=== PATIENT | female | born 1990 | race Caucasian/White ===

== ENCOUNTER 2016-11-15 10:41 | Emergency (ER) | payer BC, OTHER ==
[2016-11-15 11:03] VITALS: BP 142/93
--- NOTE | 2016-11-15 11:44 | UC ---
Shon Leal Adam, [facility] on 11/15/16 at 1122 . Upper Extremity HPI - HPI Summary HPI Summary: Nurse's Note: c/o a hard lump and bruising to her R arm, lower bicep area since yesterday. pt states she noticed the lump last night and then today, she noticed the bruising around the lump and now has pain. Denies any recent injury or trauma to the R arm In Room: Pt states that the lump appeared on the lower part of her right biceps last night. Today she developed bruising and pain around the lump. Movement of the arm does not aggravate the pain. She also reports intermittent tingling in her right hand. She denies any trauma. 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 She denies any recent URI. Besides a collarbone fracture in the past , she denies any PMHx. FMHx of palpitations. Pt does not currently have a PCP. - History of Current Complaint Chief Complaint: UCUpperExtremity Stated Complaint: LUMP ON ARM Time Seen by Provider: 11/15/16 11:17 Hx Obtained From: Patient Hx Last Menstrual Period: pt has an IUD and states not having a menses Onset/Duration: Gradual Onset, Lasting Days, Still Present Severity Initially: Moderate Severity Currently: Moderate Location Of Pain: Is Discrete @ - Right arm Aggravating Factor(s): Nothing Alleviating Factor(s): Nothing Associated Signs And Symptoms: Positive: Swelling - Lump, Bruising - Allergies/Home Medications Allergies/Adverse Reactions: Allergies Allergy/AdvReac Type Severity Reaction Status Date / Time Penicillins Allergy Intermediate Hives Verified 11/15/16 11:03 Amoxicillin [From Augmentin] AdvReac Intermediate GI Upset Verified 11/15/16 11: 04 Clavulanic Acid AdvReac Intermediate GI Upset Verified 11/15/16 11:04 [From Augmentin] Home Medications: Home Medications Sertraline HCl [Zoloft] 150 mg PO DAILY 11/15/16 [History Confirmed 11/15/16] PMH/Surg Hx/FS Hx/Imm Hx - Surgical History Surgical History: Yes Surgery Procedure, Year, and Place: tonsilectomy, back surgery - Family History Known Family History: Positive: Other - Palpitations - Social History Occupation: Employed Full-time Lives: Alone Alcohol Use: Rare Substance Use Type: None Smoking Status (MU): Never Smoked Tobacco Review of Systems Skin: Bruising - Right arm, Other - Lump on right arm Musculoskeletal: Myalgia - Right arm All Other Systems Reviewed And Are Negative: Yes Physical Exam Triage Information Reviewed: Yes Appearance: Well-Appearing, No Pain Distress, Well-Nourished Vital Signs: Initial Vital Signs Temp 98.2 F 11/15/16 10:56 Pulse 82 11/15/16 10:56 Resp 16 11/15/16 10:56 BP 142/93 11/15/16 10:56 Pulse Ox 100 11/15/16 10:56 Eyes: Positive: Conjunctiva Clear ENT: Positive: Hearing grossly normal, Pharynx normal, TMs normal. Negative: Muffled/hoarse voice Neck: Positive: Supple, No Lymphadenopathy Respiratory: Positive: Chest non-tender, Lungs clear, Normal breath sounds, No respiratory distress Cardiovascular: Positive: RRR, No Murmur Abdomen Description: Positive: Nontender, No Organomegaly, Soft Bowel Sounds: Positive: Present Musculoskeletal: Positive: Strength Intact, ROM Intact Neurological: Positive: Alert Psychological: Positive: Age Appropriate Behavior Skin: Positive: Other - 2.5 cm mildly ecchymotic area over the distal biceps muscle, approximately 5 cm above the elbow crease. No other areas of ecchymosis or lymphadenopathy. Upper Extremity Course/Dx - Course Course Of Treatment: I discussed with the patient the mechanism of injury as well as my expectation that this will resolve. I also advised her not to overuse this muscle over the next few days. - Differential Dx/Diagnosis Differential Diagnosis/HQI/PQRI: Other - Muscle injury vs tendon injury Provider Diagnoses: Localized injury to the right biceps muscle with ecchymosis. Discharge - Discharge Plan Condition: Stable Disposition: HOME Patient Education Materials: Ecchymosis (ED) Additional Instructions: WE DISCUSSED: 1. YOUR BLACK AND BLUE FLO IS FROM A MINOR INJURY TO YOUR BICEPS MUSCLE. 2. THIS SHOULD FADE OVER THE NEXT WEEK AND SHOULD NOT GET A LOT BIGGER, MORE PAINFUL OR PRODUCE ANY NEW DISABILITY. RE CHECK AT ANY TIME FOR THESE EVENTS. 3. RE CHECK FOR OTHER BLACK AND BLUE SPOTS. 4. WARM MOIST HEAT IN THE MORNING. RESTRICT LIFTING UNTIL THIS RESOLVES. 5. CALL US WITH ANY QUESTIONS OR CONCERNS. The documentation as recorded by the naomiibShon sharma Adam accurately reflects the service I personally performed and the decisions made by me, Gabo Bravo MD.
== END 2016-11-15 12:07 | disposition home or self-care (01) ==
LOC: UCEAST 10:41
DX: S49.91XA Unspecified injury of right shoulder and upper arm, initial encounter (principal); X58.XXXA Exposure to other specified factors, initial encounter; Y93.9 Activity, unspecified; Y92.9 Unspecified place or not applicable; R23.3 Spontaneous ecchymoses; Z88.1 Allergy status to other antibiotic agents; Z88.0 Allergy status to penicillin
CPT/HCPCS: 99211; G0463

== ENCOUNTER 2017-03-03 14:42 | Emergency (ER) | payer OTHER ==
[2017-03-03 14:55] VITALS: BP 142/70
[2017-03-03] MEDS ORDERED: Albuterol/Ipratropium NEB.SOL* Albuterol 2.5 MG/Ipratropium 0.5 MG 3 ML INH ONE (15:05)
--- NOTE | 2017-03-03 15:49 | UC ---
Throat Pain/Nasal Bret HPI - HPI Summary HPI Summary: ONE WEEK OF SINUS CONGESTION FACIAL PRESSURE , FEVER 102F AND OCCASIONAL COUGH WITH WHEEZING WORSE IN MORNING. NON SMOKER. NO HX OF ASTHMA. NO SORETHROAT. - History of Current Complaint Chief Complaint: UCRespiratory Stated Complaint: SINUS PRESSURE,CHEST CONGESTION Time Seen by Provider: 03/03/17 14:59 Hx Obtained From: Patient Hx Last Menstrual Period: 2 months ago Onset/Duration: Gradual Onset, Lasting Weeks, Still Present Severity: Moderate Cough: Nonproductive Associated Signs & Symptoms: Positive: Hoarseness, Sinus Discomfort, Nasal Discharge, Fever - Epiglottits Risk Factors Epiglottis Risk Factors: Negative - Allergies/Home Medications Allergies/Adverse Reactions: Allergies Allergy/AdvReac Type Severity Reaction Status Date / Time Penicillins Allergy Intermediate Hives Verified 03/03/17 14:57 Amoxicillin [From Augmentin] AdvReac Intermediate GI Upset Verified 03/03/17 14: 57 Clavulanic Acid AdvReac Intermediate GI Upset Verified 03/03/17 14:57 [From Augmentin] Home Medications: Home Medications buPROPion TAB* [Wellbutrin TAB*] 03/03/17 [History] PMH/Surg Hx/FS Hx/Imm Hx Previously Healthy: Yes - Surgical History Surgical History: Yes Surgery Procedure, Year, and Place: tonsilectomy, back surgery - Family History Known Family History: Positive: Other - Palpitations - Social History Occupation: Employed Full-time Lives: With Family Alcohol Use: Rare Substance Use Type: None Smoking Status (MU): Never Smoked Tobacco Review of Systems Constitutional: Fever, Chills Skin: Negative Eyes: Negative ENT: Nasal Discharge Respiratory: Cough Cardiovascular: Negative Gastrointestinal: Negative Genitourinary: Negative Motor: Negative Neurovascular: Negative Musculoskeletal: Negative Neurological: Negative Psychological: Negative All Other Systems Reviewed And Are Negative: Yes Physical Exam Triage Information Reviewed: Yes Appearance: No Pain Distress, Well-Nourished, Ill-Appearing - MILD Vital Signs: Initial Vital Signs Temp 98.2 F 03/03/17 14:53 Pulse 86 03/03/17 14:53 Resp 18 03/03/17 14:53 BP 142/70 03/03/17 14:53 Pulse Ox 100 03/03/17 14:53 Vital Signs Reviewed: Yes Eye Exam: Normal ENT: Positive: Hearing grossly normal, Pharynx normal, Nasal congestion, TM bulging, TM dull Dental Exam: Normal Neck exam: Normal Neck: Positive: Supple, Nontender, No Lymphadenopathy Respiratory: Positive: Chest non-tender, Normal breath sounds, No respiratory distress, No accessory muscle use, Wheezing Cardiovascular Exam: Normal Cardiovascular: Positive: RRR, No Murmur, Pulses Normal, Brisk Capillary Refill Abdominal Exam: Normal Abdomen Description: Positive: Nontender, No Organomegaly Musculoskeletal Exam: Normal Musculoskeletal: Positive: Strength Intact, ROM Intact Neurological Exam: Normal Psychological Exam: Normal Skin Exam: Normal Throat Pain/Nasal Course/Dx - Differential Dx/Diagnosis Differential Diagnosis/HQI/PQRI: Pharyngitis, Sinusitis, URI Provider Diagnoses: SINUSITIS. BRONCHITIS WITH BRONCHOSPASM Discharge - Discharge Plan Condition: Stable Disposition: HOME Prescriptions: Albuterol HFA INHALER* [Ventolin HFA Inhaler*] 1 - 2 puff INH Q6H PRN #1 mdi PRN Reason: Wheezing DOXYcycline CAP(*) [DOXYcycline 100MG CAP(*)] 100 mg PO BID #20 cap Patient Education Materials: Sinusitis (ED), Acute Bronchitis (ED), Bronchospasm (ED) Referrals: [facility] [place] [facility] [Outside] No Primary Care Phys,NOPCP [Primary Care Provider] -
== END 2017-03-03 15:55 | disposition home or self-care (01) ==
LOC: UCEAST 14:42
DX: J32.9 Chronic sinusitis, unspecified (principal); J20.9 Acute bronchitis, unspecified; Z88.1 Allergy status to other antibiotic agents; Z88.0 Allergy status to penicillin
CPT/HCPCS: 99212; A9270-GY; G0463

== ENCOUNTER 2018-09-19 07:06 | Emergency (ER) | payer OTHER ==
[2018-09-19 07:27] VITALS: BP 134/80
--- NOTE | 2018-09-19 07:31 | UC ---
Lower Extremity/Ankle HPI - HPI Summary HPI Summary: Patient presents to urgent care reporting discomfort and pain in the base of her first and second toe. Patient states she was playing soccer inside with her toddler when she kicked a leg on her dining room table. Patient states the leg went between her first and second toe. Patient states she had mild pain initially. Patient states she increased pain is it swelled throughout the night. Patient took 600 mg of Motrin. Patient states she had throbbing pain and this seemed to help. Patient continues to complain of pain in the same spot. Patient states she's bucking limp. Patient's paresthesias. Patient states she's walking she's developed some discomfort in her right ankle. Patient without any paresthesias. Slight bruising. Patient's medications reviewed this plan visit. Patient states she is not . - History of Current Complaint Chief Complaint: UCLowerExtremity Stated Complaint: RIGHT FOOT INJURY Hx Obtained From: Patient Hx Last Menstrual Period: 08/18/18 Onset/Duration: Sudden Onset Severity Initially: Mild Severity Currently: Mild Pain Intensity: 3 Pain Scale Used: 0-10 Numeric - Allergies/Home Medications Allergies/Adverse Reactions: Allergies Allergy/AdvReac Type Severity Reaction Status Date / Time amoxicillin [From Augmentin] Allergy GI Upset Verified 09/19/18 07:20 clavulanic acid Allergy GI Upset Verified 09/19/18 07:20 [From Augmentin] Penicillins Allergy Hives Verified 09/19/18 07:20 Home Medications: Home Medications Ibuprofen TAB* [Advil TAB*] 600 mg PO ONCE 09/19/18 [History Confirmed 09/19/18] Multivitamin [Multivitamins] 1 cap PO DAILY 09/19/18 [History Confirmed 09/19/18 ] PMH/Surg Hx/FS Hx/Imm Hx Previously Healthy: Yes - Surgical History Surgical History: Yes Surgery Procedure, Year, and Place: tonsilectomy, back surgery - Family History Known Family History: Positive: Other - Palpitations - Social History Lives: With Family Alcohol Use: Rare Substance Use Type: None Smoking Status (MU): Never Smoked Tobacco Review of Systems All Other Systems Reviewed And Are Negative: Yes Skin: Positive: Bruising - mild base great toe Musculoskeletal: Positive: Other: - toe right foot Physical Exam - Summary Physical Exam Summary: Vital Signs Reviewed: Yes A+Ox3, no distress Eyes: Conjunctiva Clear ENT: Hearing grossly normal neck: supple Respiratory: Positive: No respiratory distress, No accessory muscle use Cardiovascular: skin color reflect adequate perfusion 2+ DP, PT CBT < 2 sec Musculoskeletal Exam: FOREMAN x 4 without difficulty + SLE + flex.ext knee + flex/ ext ankle + TTP right foot base 1st and 2nd toe no crepitus mild edema no pain metatarsals, tarsals. mild discomfort posterior lateral malleolus Neurological: Positive: Alert, ambulatory with limp Skin: Positive: no rash, mild ecchymosis Psychological: approrpriate, A+O Triage Information Reviewed: Yes Vital Signs: Initial Vital Signs Temp 98.8 F 09/19/18 07:21 Pulse 84 09/19/18 07:21 Resp 18 09/19/18 07:21 BP 134/80 09/19/18 07:21 Pulse Ox 98 09/19/18 07:21 Diagnostics - Radiology No standard instances Radiology Interpretation Completed By: ED Physician - no acute fracture Lower Extremity Course/Dx - Course Course Of Treatment: Patient presents to urgent care with pain in her right great and second toe. Patient states she struck a table last night while playing indoor soccer with her child. Patient with throbbing pain last night. Mild ecchymosis. Patient took Motrin last night no analgesia today. Patient declines analgesia today. Patient agreement ice. Will check imaging. encourage ice/elevate. motrin/apap. hard soled shoe - Differential Dx/Diagnosis Provider Diagnosis: Contusion of right foot Discharge - Sign-Out/Discharge Documenting (check all that apply): Patient Departure All imaging exams completed and their final reports reviewed: Yes - Discharge Plan Condition: Stable Disposition: HOME Patient Education Materials: Foot Contusion (ED) Forms: *Gen. Provider Communication, *Work Release Referrals: [facility] [Provider Group] No Primary Care Phys,NOPCP [Primary Care Provider] - Additional Instructions: -apply ice (20 min at a time) every 2-3 hours for the next 2 days -use crutches until you can walk normally without a limp -Elevate your leg - this will help with swelling and pain - wear shoes with firm sole - good support - Alternate ibuprofen (advil, Motrin) 600mg and tylenol every 3 hours for pain. Take with food. Do NOT take for more than 4-5 days - The radiologist has not yet read your xray- your doctor will follow-up on the report. If there is a broken bone or other finding, you will receive a call from a care merchandise team manager -Contact the sports medicine provider today to arrange a follow-up appointment later this week. - Billing Disposition and Condition Condition: STABLE Disposition: Home
--- NOTE | 2018-09-19 08:49 | UC ---
- Progress Note Progress Note: Patient Name: LAXMI PARKS Medical Record#: [id number] Ordering Physician: Oly Ralph MD Acct.#: [id number] : 1990 Age: 28 Sex: F Location: [facility] Exam Date: 09/19/18738 ADM Status: REG ER Order Information: FOOT RIGHT 3+ VWS Accession Number: [id number] CPT: 90029 Indication: Pain at the base of the first and second toes following injury. Comparison: No relevant prior exams available on the [facility] PACS for comparison. Technique: AP, lateral, and oblique views RIGHT foot. Report: Negative for fracture or malalignment. Unremarkable soft tissue contours. IMPRESSION: #. Negative exam. <Electronically signed by Mihir Baker MD in OV> 09/19/18842 Dictated By: Mihir Baker MD Dictated Date/Time: 09/19/18842 Transcribed Date/Time: 09/19/18833 Copy to: CC:Oly Ralph MD; No Primary Care Phys,NOPCP Imaging - [facility] [address] [place] [address] ph ([phone] ph ([phone]) ph ([phone]) This report is only to be considered final once signed by the Provider(s) as displayed in the "<Electronically Signed by >" field (s). Absence of a signature indicates the report is in a draft status and still needs to be finalized. In the event this document was created by someone other than the signing Provider, the individual initiating the document will be listed in the "Entered by:" or "Dictated by:" dubois. 1 of 1 Course/Dx - Diagnoses Provider Diagnoses: Contusion of right foot Discharge - Sign-Out/Discharge Documenting (check all that apply): Post-Discharge Follow Up All imaging exams completed and their final reports reviewed: Yes - Discharge Plan Condition: Stable Disposition: HOME Patient Education Materials: Crutch Instructions (ED), Foot Contusion (ED) Forms: *Gen. Provider Communication, *Work Release Referrals: [facility] [Provider Group] No Primary Care Phys,NOPCP [Primary Care Provider] - Additional Instructions: -apply ice (20 min at a time) every 2-3 hours for the next 2 days -use crutches until you can walk normally without a limp -Elevate your leg - this will help with swelling and pain - wear shoes with firm sole - good support - Alternate ibuprofen (advil, Motrin) 600mg and tylenol every 3 hours for pain. Take with food. Do NOT take for more than 4-5 days - The radiologist has not yet read your xray- your doctor will follow-up on the report. If there is a broken bone or other finding, you will receive a call from a care boilermaker central steam plant -Contact the sports medicine provider today to arrange a follow-up appointment later this week. - Billing Disposition and Condition Condition: STABLE Disposition: Home
== END 2018-09-19 08:57 | disposition home or self-care (01) ==
LOC: UCCORT 07:06
DX: S90.31XA Contusion of right foot, initial encounter (principal); W22.09XA Striking against other stationary object, initial encounter; Y93.89 Activity, other specified; Y92.009 Unspecified place in unspecified non-institutional (private) residence as the place of occurrence of the external cause; Z88.0 Allergy status to penicillin; Z88.8 Allergy status to other drugs, medicaments and biological substances
CPT/HCPCS: 99213; G0463

== ENCOUNTER 2019-08-06 08:37 | Emergency (ER) | payer OTHER ==
--- NOTE | 2019-08-06 08:49 | UC ---
UC General HPI - HPI Summary HPI Summary: noticed some neck and shoulder stiffness on night, worsened and became more painful monday night. Does not recall precise injury perse, but during the day on was cleaning / shoveling chicken coop. But did not have pain at the time. Tendernes has progressively increased since night. Unable to get comfortable, last night really bad. Pain radiates to L post shoulder and L upper back. [facility] - approx 4yrs ago - + herniated lumbar disc (not sure of level maybe #5?), with distal LLE weakness / numbness -> s/p discectomoty, better. Works as an aviation electrician. No recent fever / chills. No sob / cp No GI issues. No rash. - History of Current Complaint Chief Complaint: UCBackPain Stated Complaint: NECK/ SHOULDER PAIN Hx Obtained From: Patient Hx Last Menstrual Period: july 10 Pain Intensity: 3 - Allergy/Home Medications Allergies/Adverse Reactions: Allergies Allergy/AdvReac Type Severity Reaction Status Date / Time amoxicillin [From Augmentin] Allergy GI Upset Verified 08/06/19 08:46 clavulanic acid Allergy GI Upset Verified 08/06/19 08:46 [From Augmentin] Penicillins Allergy Hives Verified 08/06/19 08:46 PMH/Surg Hx/FS Hx/Imm Hx Previously Healthy: Yes - see hpi - Surgical History Surgical History: Yes Surgery Procedure, Year, and Place: tonsilectomy, back surgery - Family History Known Family History: Positive: Other - Palpitations - Social History Alcohol Use: Weekly Substance Use Type: None Smoking Status (MU): Never Smoked Tobacco Review of Systems All Other Systems Reviewed And Are Negative: Yes Constitutional: Positive: Negative Skin: Positive: Other - see hpi ENT: Positive: Negative Respiratory: Positive: Negative Cardiovascular: Positive: Negative Gastrointestinal: Positive: Negative Genitourinary: Positive: Negative Motor: Positive: Other - see hpi Neurovascular: Positive: Other - see hpi Musculoskeletal: Positive: Other: - see hpi Neurological: Positive: Other - see hpi Psychological: Positive: Negative Is Patient Immunocompromised?: No Physical Exam Triage Information Reviewed: Yes Appearance: Well-Nourished, Other: - Sitting up, conversing easily. Clearly difficult to move neck d/t pain Vital Signs: Initial Vital Signs Temp 98.5 F 08/06/19 08:43 Pulse 71 10/22/19 08:43 Resp 14 08/06/19 08:43 BP 131/76 08/06/19 08:43 Pulse Ox 99 08/06/19 08:43 Vital Signs Reviewed: Yes Eye Exam: Normal ENT Exam: Normal Neck exam: Other - Tender L lower post neck approx lateral #5-6 region. No point oliva tenderness. + spasm. + torticollis. + ax n. sensation present bilat. Hand grasp / finger strength good. Distal nvi, with good cap refill. Respiratory Exam: Normal Cardiovascular Exam: Normal Abdominal Exam: Normal Musculoskeletal Exam: Other - see above Neurological Exam: Other - see above Psychological Exam: Normal Skin Exam: Normal - no visible or reported rash Course/Dx - Course Course Of Treatment: I reviewed ct report (when available) with pt. Reviewed coa / tx plan, recommend f/u with pcp and / or specialist field engineer. Soft collar for comfort. Questions as posed answered to the best of my ability. rx skelaxin, nsaid (not prednisone), norco. No narc concern / usual narc talk. Ref # [id number] - Diagnoses Provider Diagnosis: Cervical strain, Torticollis Discharge ED - Sign-Out/Discharge Documenting (check all that apply): Patient Departure All imaging exams completed and their final reports reviewed: Yes - Discharge Plan Condition: Stable Disposition: HOME Prescriptions: HYDROcodone/ACETAMIN 5-325 MG* [[place] 5-325 TAB*] 2 tab PO Q8H PRN #16 tab MDD 6 PRN Reason: Pain - Severe Ibuprofen TAB* [Motrin TAB* 600 MG] 600 mg PO Q8H PRN #30 tab PRN Reason: Pain Metaxalone TAB* [Skelaxin TAB*] 800 mg PO TID PRN #21 tab PRN Reason: Spasms Patient Education Materials: Cervical Strain (ED), Spasmodic Torticollis (ED) Forms: *Work Release Referrals: [facility] [Outside] [facility] [Outside] No Primary Care Phys,NOPCP [Primary Care Provider] - Additional Instructions: Please follow up with a primary care physician, as soon as you are able. Follow up with bone / joint surgeon (neck specialist) if possible in the next couple weeks for recheck. You may call your prior back doctor if you prefer. Please go to the Emergency Department for any worse or new problems including pain, fever. - Billing Disposition and Condition Condition: STABLE Disposition: Home
[2019-08-06 10:53] VITALS: BP 124/87
== END 2019-08-06 11:28 | disposition home or self-care (01) ==
LOC: UCEAST 08:37
DX: S16.1XXA Strain of muscle, fascia and tendon at neck level, initial encounter (principal); M43.6 Torticollis; Z88.0 Allergy status to penicillin; X58.XXXA Exposure to other specified factors, initial encounter; Y93.H1 Activity, digging, shoveling and raking; Y92.9 Unspecified place or not applicable
CPT/HCPCS: 72125; 84702; 99212; G0463

== ENCOUNTER 2020-06-08 10:50 | Inpatient (IN) ==
[2020-06-08] MEDS ORDERED: Lactated Ringers 1000 ml BAG 1,000 ML IV ONE ×2 (11:49→22:57)
[2020-06-08 13:24] LABS: Urine Benzodiazepine Screen None Detected (None Detect); Urine Cannabinoids Screen None Detected (None Detect); Urine Opiates Screen None Detected (None Detect)
[2020-06-08 14:34] LABS: ABS Eosinophils 0.1 10^3/ul (0-0.6); ABS Lymphocytes 1.7 10^3/ul (1.0-4.8); ABS Monocytes 0.7 10^3/ul (0-0.8); ABS Neutrophils 10.1 10^3/ul (1.5-7.7); Hematocrit 38 % (35-47); Hemoglobin 13.4 g/dL (12.0-16.0); Lymphocyte % 13.6 %; Mean Corpuscular HGB Conc 35 g/dL (31-36); Mean Corpuscular Hemoglobin 30 pg (27-31); Mean Corpuscular Volume 87 fL (80-97); Mean Platelet Volume 8.8 fL (7.4-10.4); Platelet Count 218 10^3/uL (150-450); Red Blood Count 4.42 10^6 /uL (3.70-4.87); Red Cell Distribution Width 14 % (10-15); White Blood Count 12.8 10^3/uL (3.5-10.8)
[2020-06-08] MEDS: Lactated Ringers 1000 ml BAG 1,000 ML IV SCH (16:43)
[2020-06-08] MEDS ORDERED: Oxytocin in LR 20 UNITS/1,000 ML BAG IVPB SCH (17:00)
[2020-06-08] MEDS ORDERED: Ammonia Inhalant 1 EA AMP ONE (19:17)
[2020-06-08] MEDS ORDERED: OBEPIDURAL 250 ML EPIDURAL ONE (21:47)
[2020-06-08] MEDS ORDERED: EPHEDrine (Pressors) 50 MG/ML VIAL IV PUSH PRN ×2 (22:57)
[2020-06-08] MEDS ORDERED: Sodium Citrate/Citric Acid LIQ 15 ML UDC PO PRN (22:57)
[2020-06-08] MEDS ORDERED: Phenylephrine 40 mcg/mL 10mL (400mcg) SYRINGE IV PUSH PRN ×2 (22:57)
[2020-06-08] MEDS ORDERED: OBEPIDURAL 250 ML EPIDURAL SCH (23:00)
[2020-06-08] MEDS ORDERED: Lactated Ringers 1000 ml BAG 1,000 ML IV SCH (23:00)
[2020-06-09] MEDS: Lactated Ringers 1000 ml BAG 1,000 ML IV SCH (00:24)
[2020-06-09] MEDS ORDERED: Glycerin ADULT 2.4 gm SUPP PR PRN (01:21)
[2020-06-09] MEDS ORDERED: Witch Hazel PAD JAR TOPICAL PRN (01:21)
[2020-06-09] MEDS ORDERED: Dibucaine 1% OINT 28.35 GM TUBE PR PRN (01:21)
[2020-06-09] MEDS ORDERED: Lactated Ringers 1000 ml BAG 1,000 ML IV SCH (02:00)
[2020-06-09] MEDS ORDERED: Oxytocin in LR 20 UNITS/1,000 ML BAG IVPB SCH (02:00)
[2020-06-09] MEDS ORDERED: Lidocaine 1% MPF 5 ML VIAL ONE (04:49)
[2020-06-10 08:46] VITALS: BP 124/70
[2020-06-10 09:06] LABS: ABS Basophils 0.1 10^3/ul (0-0.2); ABS Eosinophils 0.2 10^3/ul (0-0.6); ABS Lymphocytes 2.3 10^3/ul (1.0-4.8); ABS Monocytes 0.6 10^3/ul (0-0.8); ABS Neutrophils 9.3 10^3/ul (1.5-7.7); Eosinophil % 1.8 %; Hematocrit 33 % (35-47); Hemoglobin 11.3 g/dL (12.0-16.0); Lymphocyte % 18.3 %; Mean Corpuscular HGB Conc 35 g/dL (31-36); Mean Corpuscular Hemoglobin 30 pg (27-31); Mean Corpuscular Volume 87 fL (80-97); Mean Platelet Volume 8.4 fL (7.4-10.4); Nucleated Red Blood Cells % 0.1; Platelet Count 225 10^3/uL (150-450); Red Blood Count 3.72 10^6 /uL (3.70-4.87); Red Cell Distribution Width 14 % (10-15); White Blood Count 12.5 10^3/uL (3.5-10.8)
== END 2020-06-10 11:18 | disposition home or self-care (01) | DRG 807 ==
LOC: MCHOBOUT 10:50 → MCHOB 11:47
PROVIDERS: ADMIT Midwife; ATTEND Midwife